=== PATIENT | male | born 1970 | race Caucasian/White ===

== ENCOUNTER 2024-10-01 13:11 | Emergency (ER) | payer MEDICAID ==
[~2024-10-01] VITALS: Ht 190.5 cm; Wt 107.0 kg
[2024-10-01 13:22] VITALS: TEMP 37; O2SAT 96
[2024-10-01 13:24] VITALS: O2SAT 97
[2024-10-01 14:54] VITALS: BP 126/92; PULSE 89; RESP 16
[2024-10-01] MEDS: KETOROLAC 30MG/ML VIAL IM ONE (14:54)
== END 2024-10-01 15:56 | disposition home or self-care (01) ==
LOC: ER 13:11
DX: M54.50 Low back pain, unspecified (principal); E11.9 Type 2 diabetes mellitus without complications
CPT/HCPCS: 99283; 96372; J1885